=== PATIENT | male | born 1975 | race Caucasian/White ===

== ENCOUNTER 2019-05-15 13:51 | Emergency (ER) | payer MEDICAID ==
[~2019-05-15] VITALS: Ht 154.9 cm; Wt 83.4 kg
[~2019-05-15 13:51] MED LIST: HYDR25TA6 PO
[2019-05-15 13:55] VITALS: Ht 154.9 cm; Wt 83.4 kg
[2019-05-15] MEDS ORDERED: SOD CHLORIDE 0.9% 500 ML IV STA (16:18)
[2019-05-15] MEDS ORDERED: HYDROCHLOROTHIAZIDE 25 MG TAB PO ONE (16:30)
[2019-05-15 17:39] VITALS: BP 131/86; PULSE 64; RESP 17
== END 2019-05-15 17:41 | disposition home or self-care (01) ==
LOC: E/R 13:51
DX: R42 Dizziness and giddiness (principal); I10 Essential (primary) hypertension; R40.2142 Coma scale, eyes open, spontaneous, at arrival to emergency department; R40.2252 Coma scale, best verbal response, oriented, at arrival to emergency department; R40.2362 Coma scale, best motor response, obeys commands, at arrival to emergency department
CPT/HCPCS: 70450; 71045; 80048; 84484; 85025; 93005; J7040; Z7502; Z7610